=== PATIENT | male | born 1985 | race Caucasian/White ===

== ENCOUNTER 2017-03-26 19:37 | Emergency (ER) | payer OTHER ==
[~2017-03-26] VITALS: Ht 170.2 cm; Wt 49.9 kg
[2017-03-26 19:44] VITALS: BP_SYST 124
[2017-03-26] MEDS ORDERED: cefTRIAXone 1 GM in LIDOCAINE 1%, 20 ML MDV 2.1 ML IM ONE (20:00)
[2017-03-26] MEDS ORDERED: cefTRIAXone 1 GM VIAL ONE (20:11)
[2017-03-26 20:27] VITALS: BP_SYST 124
== END 2017-03-26 20:27 | disposition home or self-care (01) ==
LOC: SED 19:37
DX: K08.89 Other specified disorders of teeth and supporting structures (principal); R22.0 Localized swelling, mass and lump, head
CPT/HCPCS: 96372; 99283; J0696

== ENCOUNTER 2018-01-25 04:05 | Emergency (ER) | payer MEDICAID, OTHER ==
[~2018-01-25] VITALS: Ht 170.2 cm; Wt 56.7 kg
[2018-01-25 04:10] VITALS: BP_SYST 122
--- NOTE | 2018-01-25 04:10 | NUR ---
Patient to ER bed 8 to gown for evaluation. Side rails up. Report received from GRACIE Matthews.
--- NOTE | 2018-01-25 04:12 | NUR ---
Pt complains of two abscesses to left forearm and skin tear to left elbow. Per pt, the two abcesses were from a dog three days ago and has gotten worse yesterday. Skin tear to elbow was from when he fell skating. Pt denies N/V or fever. No other injuries/complaints per patient or noted.
--- NOTE | 2018-01-25 04:17 | NUR ---
ER Dr. Gonzalez at bedside examining patient.
--- NOTE | 2018-01-25 04:26 | NUR ---
Xray at patient bedside. Pt tolerated well.
[2018-01-25] MEDS ORDERED: CLINDAMYCIN HCL 150 MG CAPSULE PO ONE (04:45)
[2018-01-25] MEDS ORDERED: AMOXICILLIN/CLAVULANATE POTASSIUM 875 MG TABLET PO ONE (04:45)
[2018-01-25] MEDS ORDERED: SULFAMETHOXAZOLE/TRIMETHOPR DS 1 TABLET PO ONE (04:45)
[2018-01-25] MEDS ORDERED: BACITRACIN 1 GM OINT TP ONE (04:45)
--- NOTE | 2018-01-25 04:56 | NUR ---
medications were given, pt tolerated well. No adverse reaction, will continue to monitor.
[2018-01-25 05:20] VITALS: BP_SYST 124
--- NOTE | 2018-01-25 05:20 | NUR ---
Patient given written and verbal discharge instructions and verbalizes understanding. ER MD discussed with patient the results and treatment provided. Patient in stable condition. ID arm band removed. Rx of Clindamycin and mupirocin given. Patient educated on pain management and to follow up with PMD. Pain Scale 2/10 tolerable for patient. Opportunity for questions provided and answered. Medication side effect fact sheet provided.
== END 2018-01-25 05:20 | disposition home or self-care (01) ==
LOC: SED 04:05
DX: S50.872A Other superficial bite of left forearm, initial encounter (principal); L03.114 Cellulitis of left upper limb; J45.909 Unspecified asthma, uncomplicated; F41.9 Anxiety disorder, unspecified; Z91.010 Allergy to peanuts; W54.0XXA Bitten by dog, initial encounter; Y93.89 Activity, other specified; Y92.89 Other specified places as the place of occurrence of the external cause; Y99.8 Other external cause status
CPT/HCPCS: 73090; 87070-TC; 87186-TC; 99284; 99285

== ENCOUNTER 2018-07-19 01:59 | Emergency (ER) | payer MEDICAID, OTHER ==
[~2018-07-19] VITALS: Ht 170.2 cm; Wt 54.4 kg
[2018-07-19 02:30] VITALS: BP_SYST 120
--- NOTE | 2018-07-19 02:35 | NUR ---
Patient to [facility] for evaluation.
--- NOTE | 2018-07-19 02:40 | NUR ---
Patient to ER via triage for evaluation of abscess to his right leg x 1 week, patient reports that abscess is getting worse. Patient is awake, alert and oriented in no acute distress, vital signs stable, respirations even and unlabored, skin warm and dry to touch. Patient able to ambulate to hallway bed, awaiting evaluation by ER MD, will continue to observe and assess.
--- NOTE | 2018-07-19 02:45 | NUR ---
Pt came into ED C/O swollen and hot x2 spot R Calf over 2 weeks. Denies any injuries. No other injuries and complaints observed or noted. VSS, no s/s of acute distress. Resting on gurney with rails up
[2018-07-19] MEDS ORDERED: SULFAMETHOXAZOLE/TRIMETHOPR DS 1 TABLET PO ONE (04:00)
[2018-07-19] MEDS ORDERED: IBUPROFEN 400 MG TABLET PO ONE (04:00)
[2018-07-19 04:13] VITALS: BP_SYST 118
--- NOTE | 2018-07-19 04:13 | NUR ---
Patient given written and verbal discharge instructions and verbalizes understanding. ER MD discussed with patient the results and treatment provided. Patient in stable condition. ID arm band removed. Rx of Motrin and Bactrim DS given. Patient educated on pain management and to follow up with PMD. Pain Scale 0/10. Opportunity for questions provided and answered. Medication side effect fact sheet provided.
== END 2018-07-19 04:13 | disposition home or self-care (01) ==
LOC: SED 01:59
DX: L03.115 Cellulitis of right lower limb (principal); F41.9 Anxiety disorder, unspecified; J45.909 Unspecified asthma, uncomplicated; Z91.010 Allergy to peanuts
CPT/HCPCS: 99283

== ENCOUNTER 2019-03-19 01:57 | Emergency (ER) | payer OTHER ==
[~2019-03-19] VITALS: Ht 170.2 cm; Wt 54.4 kg
[2019-03-19 02:10] VITALS: BP_SYST 122
[2019-03-19 04:20] VITALS: BP_SYST 126
== END 2019-03-19 04:20 | disposition home or self-care (01) ==
LOC: SED 01:57
DX: J06.9 Acute upper respiratory infection, unspecified (principal); F17.290 Nicotine dependence, other tobacco product, uncomplicated; F11.90 Opioid use, unspecified, uncomplicated; F12.90 Cannabis use, unspecified, uncomplicated
CPT/HCPCS: 71045; 99283

== ENCOUNTER 2019-05-02 02:40 | Emergency (ER) | payer OTHER ==
[~2019-05-02] VITALS: Ht 170.2 cm; Wt 54.4 kg
[2019-05-02 03:00] VITALS: BP_SYST 117
--- NOTE | 2019-05-02 03:00 | NUR ---
Pt ambulatory to bed 7 for evaluation
--- NOTE | 2019-05-02 03:15 | NUR ---
Dr. Humphries bedside for Pt eval
--- NOTE | 2019-05-02 03:22 | NUR ---
Pt came into ED C/O cough and congestion. Patient states he was seen for similar symptoms approximately a month ago and has been taking [id number] medication including cough drops. States symptoms improved for approximately a week but then returned. No associated fever, vomiting, diarrhea, rash, headache, neck stiffness. Symptoms mild in nature constant with no alleviating factors No other complaints and or injuries noted VSS no s/s of acute distress Resting on gurney rails up
[2019-05-02 04:10] VITALS: BP_SYST 117
--- NOTE | 2019-05-02 04:10 | NUR ---
Patient given written and verbal discharge instructions and verbalizes understanding. ER MD discussed with patient the results and treatment provided. Patient in stable condition. ID arm band removed. Rx of Prednisone given. Patient educated on pain management and to follow up with PMD. Pain Scale 0/10 Opportunity for questions provided and answered. Medication side effect fact sheet provided.
== END 2019-05-02 04:10 | disposition home or self-care (01) ==
LOC: SED 02:40
DX: J06.9 Acute upper respiratory infection, unspecified (principal); J45.909 Unspecified asthma, uncomplicated; F41.9 Anxiety disorder, unspecified; Z91.010 Allergy to peanuts
CPT/HCPCS: 99283

== ENCOUNTER 2020-11-12 09:56 | Emergency (ER) | payer MEDICAID, OTHER ==
[~2020-11-12] VITALS: Ht 170.2 cm; Wt 54.4 kg
[2020-11-12 09:56] VITALS: BP_SYST 122
[2020-11-12] MEDS ORDERED: AMOX-423 PO (10:05)
[2020-11-12] MEDS ORDERED: cefTRIAXone 1 GM VIAL IM ONE (10:15)
== END 2020-11-12 10:21 | disposition home or self-care (01) ==
LOC: SED 09:56
DX: L03.211 Cellulitis of face (principal); J45.909 Unspecified asthma, uncomplicated; Z91.010 Allergy to peanuts; Z79.899 Other long term (current) drug therapy
CPT/HCPCS: 96372; 99283; J0696

== ENCOUNTER → 2021-09-14 | Emergency (ER) | payer MEDICAID, OTHER ==
[~2021-09-14] MED LIST: AMOX-423 PO
== END | disposition left against medical advice (07) ==
LOC: SED 16:13
DX: L08.9 Local infection of the skin and subcutaneous tissue, unspecified (principal); Z53.21 Procedure and treatment not carried out due to patient leaving prior to being seen by health care provider

== ENCOUNTER 2023-11-27 07:29 | Emergency (ER) | payer MEDICAID, OTHER ==
[~2023-11-27] VITALS: Ht 170.2 cm; Wt 59.0 kg
[2023-11-27 07:43] VITALS: BP_SYST 123; PULSE 88; RESP 17; TEMP 96.9; O2SAT 99
[2023-11-27 07:46] VITALS: BP_SYST 123; PULSE 88; RESP 17; TEMP 96.9; O2SAT 99
[2023-11-27] MEDS ORDERED: IBUP-1971 PO (10:03)
[2023-11-27] MEDS ORDERED: HYDR-3917 PO (10:03)
== END 2023-11-27 09:55 | disposition left against medical advice (07) ==
LOC: SED 07:29
DX: R22.42 Localized swelling, mass and lump, left lower limb (principal); M25.562 Pain in left knee; J45.909 Unspecified asthma, uncomplicated; F41.9 Anxiety disorder, unspecified; Z91.010 Allergy to peanuts; Z79.2 Long term (current) use of antibiotics
CPT/HCPCS: 73564; 99283